=== PATIENT | female | born 1955 | race Caucasian/White ===

== ENCOUNTER 2024-02-17 12:00 | Emergency (ER) | payer MEDICARE, BC ==
[2024-02-17 12:18] LABS: BASOPHILS ABSOLUTE AUTO 0.1 x10-3/uL (0.0-0.1); BLOOD UREA NITROGEN,BUN 14 mg/dL (7-18); BUN/CREATININE RATIO 12.7 (9-20); CALCIUM 9.6 mg/dL (8.6-10.2); CARBON DIOXIDE,CO2 27 mmol/L (21-32); CHLORIDE,CL 98 mmol/L (100-110); CREATININE 1.1 mg/dL (0.55-1.02); EOSINOPHILS ABSOLUTE AUTO 0.1 x10-3/uL (0.0-0.8); EST CRCL DRUG DOSING (CG) 41.68 mL/min; ESTIMATED GFR 54 mL/min (>60); GLUCOSE RANDOM 121 mg/dL (80-116); HEMATOCRIT 46.6 % (34.2-48.2); HEMOGLOBIN 15.9 g/dL (11.4-15.5); MEAN CORPUSCULAR HEMOGLOBIN 28.8 pg (23.9-33.9); MONOCYTES ABSOLUTE AUTO 0.8 x10-3/uL (0.3-1.0); POTASSIUM,K 3.5 mmol/L (3.5-5.3); SODIUM,NA 137 mmol/L (135-145)
[2024-02-17 12:20] LABS: EOSINOPHILS PERCENT AUTO 0.7 % (0.6-8.1); LYMPHOCYTES ABSOLUTE AUTO 2.1 x10-3/uL (1.0-4.4); LYMPHOCYTES PERCENT AUTO 16.4 % (18.4-52.1); MEAN CORPUSCULAR VOLUME 84.6 fL (76.7-100.5); MEAN PLATELET VOLUME 8.1 fL (7.1-12.4); MONOCYTES PERCENT AUTO 6.3 % (4.4-15.7); NEUTROPHILS ABSOLUTE AUTO 9.8 x10-3/uL (1.5-6.3); NEUTROPHILS PERCENT AUTO 75.6 % (30.8-76.2); PLATELET COUNT,PLT 400 x10(3)uL (151-488); RED BLOOD CELL COUNT 5.51 x10(6)uL (3.60-5.20); RED CELL DISTRIBUTION WIDTH 13.5 % (12.3-16.5)
[2024-02-17 12:24] LABS: A/G RATIO 0.9; ALANINE AMINOTRANSFERASE,ALT 24 U/L (12-36); ALBUMIN 3.9 g/dL (3.2-4.6); ALKALINE PHOSPHATASE 94 IU/L (56-112); ASPARTATE AMNIOTRANSFERASE,AST 19 IU/L (5-25); BILIRUBIN TOTAL 0.5 mg/dL (0.1-1.3); PROTEIN TOTAL,TP 8.3 g/dL (6.0-8.0)
[2024-02-17 12:30] LABS: BILIRUBIN,URINE NEGATIVE (NEGATIVE); GLUCOSE,URINE NORMAL (NORMAL); KETONES,URINE NEGATIVE (NEGATIVE); LEUKOCYTE ESTERASE,URINE NEGATIVE (NEGATIVE); NITRITE,URINE NEGATIVE (NEGATIVE); OCCULT BLOOD,URINE MODERATE (NEGATIVE); PROTEIN,URINE NEGATIVE (NEGATIVE); UROBILINOGEN,URINE NORMAL (NEGATIVE)
[2024-02-17 12:31] LABS: APPEARANCE,URINE CLEAR (CLEAR); COLOR,URINE YELLOW (YELLOW)
[2024-02-17] MEDS: Metoprolol Tartrate 5 MG/5 ML SDV IVPUSH ONE (12:39)
[2024-02-17 12:40] LABS: BACTERIA,URINE OCCASIONAL (NS); EPITHELIAL CELLS,URINE OCCASIONAL; RBC,URINE 0-5 (0-5); WBC,URINE 0-5 (0-5)
[2024-02-17 12:54] VITALS: BP 168/97; PULSE 64
[2024-02-17] MEDS: hydrALAZINE 20 MG/ML SDV IVPUSH ONE (13:10)
== END 2024-02-17 13:50 | disposition home or self-care (01) ==
LOC: FB.ED 12:00
DX: I10 Essential (primary) hypertension (principal); Z79.82 Long term (current) use of aspirin; Z79.899 Other long term (current) drug therapy
CPT/HCPCS: 36415; 71046; 80053; 81001; 84484; 85025; 93010; 96374; 99284; 99284-25; J3490